=== PATIENT | female | born 1935 | race Caucasian/White ===

== ENCOUNTER 2017-07-07 08:07 | Inpatient (IN) | payer MEDICARE, OTHER ==
[2017-07-06 15:53] LABS: BASOPHILS # (AUTO) 0.1 (0.0-0.1); BASOPHILS % 0.8 % (0.0-1.0); EOSINOPHILS # (AUTO) 0.4 (0.0-0.4); EOSINOPHILS % 5.4 % (0.0-6.0); HEMATOCRIT 38.3 % (34.2-44.1); LYMPHOCYTES # (AUTO) 1.7 (1.0-3.2); LYMPHOCYTES % 23.9 % (18.0-39.1); MEAN CORPUSCULAR HEMOGLOBIN 30.5 pg (28-32); MEAN CORPUSCULAR HGB CONC 33.9 g/dL (31-35); MEAN CORPUSCULAR VOLUME 89.9 fL (81-99); MONOCYTES % 14.2 % (4.4-11.3); NEUTROPHILS % 55.4 % (38.7-80.0); PLATELET COUNT 221 x10e3/uL (140-360); RED BLOOD COUNT 4.26 x10e6/uL (3.6-5.1); RED CELL DISTRIBUTION WIDTH 13.3 % (11.7-14.4)
[2017-07-06 16:05] LABS: ANION GAP 12.9 mmol/L (8-16); CALCIUM 10.9 mg/dL (8.4-10.2); CREATININE, SERUM 2.78 mg/dL (0.57-1.11); POTASSIUM 3.9 mmol/L (3.5-5.1)
--- NOTE | 2017-07-06 16:24 | Diagnostic Imaging Report ---
PROCEDURE: X-RAY CHEST, TWO VIEWS COMPARISON: None. INDICATIONS: PRE-OP FINDINGS: LUNGS: Calcified granuloma in the lateral right upper lobe measures 7 mm. No soft tissue mass or infiltrate in either lung. Pulmonary veins are prominent. No interstitial edema. PLEURA: No effusions or pneumothorax. HEART \T\ MEDIASTINUM: The heart is enlarged. Aorta is ectatic with calcifications of the arch. AICD lead terminates in the right ventricle. BONES \T\ SOFT TISSUES: No focal osseous lesions. Anchors are present in the right humeral head. Clips in the upper abdomen suggestive of cholecystectomy. CONCLUSION: Mild cardiomegaly and pulmonary venous hypertension. No acute pulmonary process. Dictated by: Alejandra Ness M.D. on 07/06/2017 at 16:24 Electronically approved by: Alejandra Ness M.D. on 07/06/2017 at 16:24
[~2017-07-07] VITALS: Ht 157.5 cm; Wt 130.6 kg
[~2017-07-07 08:07] MED LIST: AMIODARONE HCL200 MG PO; COLESTIPOL HCL1 GM PO; ELIQUIS PO; FUROSEMIDE40 MG PO; HYDRALAZINE HC100 MG PO; LOSARTAN-HCTZ1 EAC2 PO; METOPROLOL TART50 MG PO; POTASSIUM CHLO20 ME1 PO; ROPIVACAINE 246.25 MG, EPINEPHRINE HCL 1:1000 0.5 MG, CLONIDINE HCL 0.08 MG, KETOROLAC ... INJ ONE
--- OUTSIDE RECORDS SUMMARY | 2017-07-07 08:10 | XMS REPORT ---
Author Author [facility] Address Unknown Phone Unavailable Care Team Providers Care Weight Recorder Name Role Phone SCOTTY JOINER Unavailable Unavailable Problems This patient has no known problems. Allergies, Adverse Reactions, Alerts This patient has no known allergies or adverse reactions. Medications This patient has no known medications. Results Test Description Test Time Test Comments Text Results Atomic Results Result Comments CHEST 2 VIEWS [facility] [address] [id number] Patient Name: SG HAINES MR #: [id number] : 1935 Age/Sex: 81/F Req #: [id number] Adm Physician: Ordered by: SCOTTY JOINER MD Report #: [id number] Location: OR Room/Bed: Procedure: [id number] DX/CHEST 2 VIEWS Exam Date: 07/06/17 Exam Time: 1600 REPORT STATUS: Signed PROCEDURE: X-RAY CHEST, TWO VIEWS COMPARISON: None. INDICATIONS: PRE-OP FINDINGS: LUNGS: Calcified granuloma in the lateral right upper lobe measures 7 mm. No soft tissue mass or infiltrate in either lung. Pulmonary veins are prominent. No interstitial edema. PLEURA: No effusions or pneumothorax. HEART T MEDIASTINUM: The heart is enlarged. Aorta is ectatic with calcifications of the arch. AICD lead terminates in the right ventricle. BONES T SOFT TISSUES: No focal osseous lesions. Anchors are present in the right humeral head. Clips in the upper abdomen suggestive of cholecystectomy. CONCLUSION: Mild cardiomegaly and pulmonary venous hypertension. No acute pulmonary process. Dictated by: Ignacio Ness M.D. on 07/06/2017 at 16:24 Electronically approved by: Ignacio Ness M.D. on 07/06/2017 at 16:24 Dictated By: IGNACIO NESS MD [id number] Transcribed By : VERO on 07/06/17 [id number] COPY TO: SCOTTY JOINER MD
[2017-07-07] MEDS ORDERED: CELECOXIB 200 MG CAP ONE (08:14)
[2017-07-07] MEDS ORDERED: GABAPENTIN 300 MG CAP ONE (08:14)
[2017-07-07] MEDS ORDERED: DEXAMETHASONE SOD PHOS 10 MG/1 ML VIAL ONE (08:14)
[2017-07-07] MEDS ORDERED: CEFAZOLIN SOD 2 GM/D5W 50ML 50 ML IV ONE (08:15)
[2017-07-07] MEDS ORDERED: MUPIROCIN 2% OINT 22 GM TUBE ONE (09:23)
[2017-07-07] MEDS ORDERED: BACITRACIN 50,000 UNIT VIAL ONE (09:24)
[2017-07-07] MEDS ORDERED: TRANEXAMIC ACID 1,000 MG/10 ML ML ONE (09:29)
[2017-07-07] MEDS: SODIUM CHLORIDE 0.9% 1000ML 1,000 ML IV SCH ×2 (11:20→22:51)
[2017-07-07] MEDS ORDERED: PROMETHAZINE HCL (IM) 25 MG/ML VIAL IM PRN (11:30)
[2017-07-07] MEDS ORDERED: ONDANSETRON HCL INJ 2 MG/ML VIAL IV PRN (11:30)
[2017-07-07] MEDS ORDERED: DIPHENHYDRAMINE HCL INJ 50 MG/ML VIAL IM/IV PRN (11:30)
[2017-07-07] MEDS ORDERED: KETOROLAC TROMETHAMINE 30 MG/ML VIAL IV PRN (11:30)
[2017-07-07] MEDS ORDERED: HYDROCODONE/APAP 5MG-325MG TAB PO PRN (11:30)
[2017-07-07] MEDS ORDERED: ACETAMINOPHEN 650 MG SUPP PR PRN (11:30)
--- NOTE | 2017-07-07 12:39 | Diagnostic Imaging Report ---
PROCEDURE: X-RAY LEFT KNEE, ONE OR TWO VIEWS COMPARISON: None. INDICATIONS:POST LEFT KNEE SURGERY FINDINGS: See conclusion. CONCLUSION: Status post total left knee replacement with surrounding soft tissue swelling, air and tremaine consistent with recent surgery. No acute fractures. Dictated by: Lakhwinder Carpenter M.D. on 07/07/2017 at 12:39 Electronically approved by: Lakhwinder Carpenter M.D. on 07/07/2017 at 12:39
[2017-07-07] MEDS ORDERED: CEFAZOLIN SOD 1 GM/D5W 50ML 50 ML IV SCH (14:00)
--- NOTE | 2017-07-07 14:30 | Operative Report ---
DATE OF PROCEDURE: July 07, 2017 [employer]OTIVE [employer]NET SALES CONSULTANT: Angelo Deal PA-C The patient was brought to the operating room for induction of anesthesia. Throughout this case, my PA's assistance was necessary for retraction of soft tissue and positioning of the extremity. This allows for efficient and technically successful execution of the operation and is considered medically necessary. PREOPERATIVE DIAGNOSIS: Osteoarthritis, left knee. POSTOPERATIVE DIAGNOSIS: Osteoarthritis, left knee. PROCEDURE: Left total knee arthroplasty. INDICATIONS: The patient is an 81-year-old lady who has severe arthritis in her left knee. She has failed conservative management and feels the symptoms are severely compromising her quality of life. She would like to proceed with a left total knee arthroplasty. She went through a right knee replacement approximately 10 years ago and is pleased with her improved mobility and relief of pain. The risks and benefits and added challenges due to her BMI of 37 and her age have been explained. She states she understands and wishes to proceed. DESCRIPTION OF PROCEDURE: The patient was brought to the operating room and placed under general anesthetic. She received a regional block, prophylactic antibiotics and tranexamic acid in the holding area. Her left lower extremity was prepped and draped in a sterile manner. A preoperative time out was performed. The extremity was exsanguinated, and a proximal tourniquet was inflated to 350 mmHg due to her body habitus. An anterior approach to the left knee was made. A medial parapatellar arthrotomy was performed. Clear synovial fluid was removed from the joint. Soft-tissue releases were performed to bring the knee up into flexion with the patella everted. The remnants of the cruciate ligaments were sacrificed. Meniscal remnants and marginal osteophytes were removed. Complete loss of articular cartilage was noted in all 3 compartments. A Hcan and Nephew Shazia II posterior stabilized knee system was used throughout the case. An extramedullary cutting guide was used to resect the proximal tibia. The tibial baseplate was a size #4. The central fin punch was impacted, and attention was directed towards the distal femur. An intramedullary cutting guide was used to resect the distal femur in 6 degrees of valgus and rotation referenced off of a combination of landmarks including [place] line, the epicondylar axis and the posterior condyles. The femoral component was a size 5. The anterior and posterior cuts were made. Trial reductions were then performed. An 11-mm ultracongruent tibial insert provided optimal soft-tissue balancing in full extension and 90 degrees of flexion. The patella was then resurfaced with a 32 mm x 9 mm patellar button. The thickness was checked before and after resurfacing and was right around 21 mm. Patellar tracking was noted to be concentric. The trial implants were then all removed. A 100 mL premixed pericapsular CELIO injection was placed into the soft tissue around the knee. The knee was thoroughly irrigated with a shower-tip pulsatile lavage. The components were cemented into place using a single mix of Palacos cement preloaded with antibiotics. Care was taken to remove all extravasated cement. The wound was further irrigated while the cement cured. The arthrotomy was then carefully closed with interrupted #1 Ethibond. The knee was put through flexion and extension after each stitch to ensure a secure closure was accomplished. The skin was closed with subcuticular Vicryl and tremaine. Her skin was thin and somewhat frail. A Prevena wound vacuum was applied again due to her body habitus. The leg was then wrapped with an Eric wrap, and she was extubated. She was transported to the recovery room in stable condition. Blood loss was minimal. All needle and sponge counts were correct. Job#: [id number]
[2017-07-07 15:48] VITALS: BP 132/65
[2017-07-07 15:55] VITALS: BP 132/65
[2017-07-07 16:13] VITALS: BP 132/65
[2017-07-07] MEDS ORDERED: ASPIRIN 325 MG TAB PO SCH (17:00)
[2017-07-07] MEDS ORDERED: CELECOXIB 100 MG CAP PO SCH (17:00)
[2017-07-07] MEDS ORDERED: LIDOCAINE HCL 2% LOCAL INJ 5 ML SDV VIAL INJ ONE (17:22)
[2017-07-07] MEDS ORDERED: DEXAMETHASONE SOD PHOS INJ 4 MG/ML VIAL ONE (17:22)
[2017-07-07] MEDS ORDERED: ONDANSETRON HCL INJ 2 MG/ML VIAL ONE (17:22)
[2017-07-07] MEDS ORDERED: PROPOFOL IV EMULSION 10 MG/ML 20 ML VIAL ONE (17:22)
[2017-07-07] MEDS ORDERED: SEVOFLURANE INHAL SOLN 250 ML PEN BTL ONE (17:22)
[2017-07-07] MEDS ORDERED: BUPIVACAINE HCL 0.5% INJ 30 ML VIAL INJ ONE (17:29)
[2017-07-07] MEDS ORDERED: MIDAZOLAM HCL 2 MG/2 ML VIAL ONE (17:30)
[2017-07-07] MEDS ORDERED: FENTANYL CITRATE/PF 100MCG/2 ML INJ ONE ×2 (17:30→17:34)
[2017-07-07 17:33] LABS: ALBUMIN 3.4 g/dL (3.5-5.0); ALBUMIN/GLOBULIN RATIO 1.1 (0.8-2.0); ANION GAP 13.3 mmol/L (8-16); CREATININE, SERUM 2.68 mg/dL (0.57-1.11); POTASSIUM 4.3 mmol/L (3.5-5.1)
--- NOTE | 2017-07-07 17:38 | Consultation ---
DATE OF CONSULTATION: July 07, 2017 INTERNAL MEDICINE CONSULTATION The patient is status post right knee arthroplasty, consulted for medical management. HISTORY OF PRESENTING ILLNESS: This is an 81-year-old female with a history of left knee pain for the last year or so, underwent TKA today, and after that she is being consulted. PAST MEDICAL HISTORY: History of arrhythmia, and she is on Eliquis for it. She also has a history of hypertension. OPERATIONS IN THE PAST: Cholecystectomy, hysterectomy, pacemaker, rotator cuff repair, and also a right-sided TKA. SOCIAL HISTORY: No ETOH. No IV drug abuse. Lives by herself. Primary caretakers are her daughters. No smoking either. FAMILY HISTORY: History of diabetes and history of hypertension. MEDICATIONS SHE TAKES AT HOME: Tramadol as needed. She also takes losartan/hydrochlorothiazide. She also takes Eliquis on a daily basis. ALLERGIES: NKDA. REVIEW OF SYSTEMS: Negative for chest pain. No shortness of breath. No nausea, vomiting, diarrhea. No constipation. No rectal bleeding. No hematochezia. Positive for left knee pain status post surgery. PHYSICAL EXAMINATION GENERAL: Patient is alert and oriented x3. Sleeps in and out. Arousable, though. HEENT: Normocephalic, atraumatic. Pupils react to light and accommodation. CARDIOVASCULAR: S1 and S2 normal. Regular rate and rhythm. ABDOMEN: Nontender, nondistended. EXTREMITIES: Left knee in bandage. There is a drain in there, too. ASSESSMENT 1. Status post left knee replacement. The patient has history of hypertension, will restart her home medications. 2. Patient has history of chronic renal failure. The patient's BUN was 61 and creatinine 2.78. Will go ahead and increase her fluids to 100 mL an hour to increase fluid to get her creatinine back. Check medications and start her back on Eliquis if it is okay with Ortho and check her BUN and creatinine tomorrow. Further recommendations on clinical course. Will continue to monitor the patient, and I will also monitor the patient for postsurgical anemia, too. DVT prophylaxis. The patient should be on Eliquis. We will consult Ortho. If it is okay with them, I will restart the Eliquis. Job#: [id number] EV
[2017-07-07] MEDS: ACETAMINOPHEN 1000 MG/100 ML IV SCH (17:58)
[2017-07-07] MEDS: HYDRALAZINE HCL 100 MG TABLET PO SCH (17:58)
[2017-07-07] MEDS: CEFAZOLIN SOD 1 GM VIAL IV SCH (17:59)
[2017-07-07] MEDS: FUROSEMIDE 40 MG TAB PO SCH (17:59)
[2017-07-07] MEDS: METOPROLOL TARTRATE 50 MG TAB PO SCH (17:59)
[2017-07-07] MEDS: CELECOXIB 200 MG CAP PO SCH (17:59)
[2017-07-07] MEDS ORDERED: APIXABAN 5 MG TABLET PO ONE (19:45)
[2017-07-07 20:00] VITALS: BP 115/56
[2017-07-07] MEDS ORDERED: ZOLPIDEM TARTRATE 5 MG TAB PO PRN (21:00)
[2017-07-08] VITALS (8 sets, daily range): BP systolic 107–123; BP diastolic 20–68
[2017-07-08] MEDS: ACETAMINOPHEN 1000 MG/100 ML IV SCH ×2 (00:58→06:00)
[2017-07-08] MEDS: CEFAZOLIN SOD 1 GM VIAL IV SCH ×2 (03:42→09:50)
[2017-07-08 07:11] LABS: HEMATOCRIT 35.8 % (34.2-44.1)
[2017-07-08 07:46] LABS: ALBUMIN 3.3 g/dL (3.5-5.0); ALBUMIN/GLOBULIN RATIO 1.1 (0.8-2.0); ANION GAP 14.6 mmol/L (8-16); CALCIUM 9.3 mg/dL (8.4-10.2); POTASSIUM 4.6 mmol/L (3.5-5.1)
[2017-07-08] MEDS ORDERED: NON-FORMULARY MEDICATION ([Eliquis] 5 MG) PO SCH (09:00)
[2017-07-08] MEDS: SODIUM CHLORIDE 0.9% 1000ML 1,000 ML IV SCH ×2 (09:50→20:35)
[2017-07-08] MEDS: METOPROLOL TARTRATE 50 MG TAB PO SCH ×2 (09:50→17:40)
[2017-07-08] MEDS: HYDRALAZINE HCL 100 MG TABLET PO SCH ×2 (09:50→17:40)
[2017-07-08] MEDS: APIXABAN 5 MG TABLET PO SCH ×2 (09:50→17:40)
[2017-07-08] MEDS: CELECOXIB 200 MG CAP PO SCH ×2 (09:50→17:40)
[2017-07-08] MEDS: POTASSIUM CHLORIDE 20 MEQ TAB CR PO SCH (09:50)
[2017-07-08] MEDS: FUROSEMIDE 40 MG TAB PO SCH ×2 (09:50→17:40)
[2017-07-08] MEDS: LOSARTAN POTASSIUM 100 MG TAB PO SCH (09:50)
[2017-07-08] MEDS: HYDROCHLOROTHIAZIDE 25 MG TAB PO SCH (09:50)
[2017-07-08] MEDS: AMIODARONE HCL 200 MG TAB PO SCH (09:50)
[2017-07-08] MEDS ORDERED: ACETAMINOPHEN 1000 MG/100 ML IV PRN (11:30)
[2017-07-08] MEDS: DOCUSATE SODIUM 100 MG CAP PO PRN (20:35)
[2017-07-09] VITALS (8 sets, daily range): BP systolic 91–132; BP diastolic 50–70
[2017-07-09] MEDS: SODIUM CHLORIDE 0.9% 1000ML 1,000 ML IV SCH ×3 (03:20→21:43)
[2017-07-09 06:57] LABS: HEMOGLOBIN 10.8 g/dL (12.0-16.0)
[2017-07-09 07:25] LABS: ALBUMIN/GLOBULIN RATIO 1.1 (0.8-2.0); ANION GAP 13.4 mmol/L (8-16); CALCIUM 8.5 mg/dL (8.4-10.2); CREATININE, SERUM 3.07 mg/dL (0.57-1.11); POTASSIUM 4.4 mmol/L (3.5-5.1)
[2017-07-09] MEDS: AMIODARONE HCL 200 MG TAB PO SCH (09:15)
[2017-07-09] MEDS: LOSARTAN POTASSIUM 100 MG TAB PO SCH (09:15)
[2017-07-09] MEDS: METOPROLOL TARTRATE 50 MG TAB PO SCH ×2 (09:15→16:36)
[2017-07-09] MEDS: HYDRALAZINE HCL 100 MG TABLET PO SCH ×2 (09:15→16:36)
[2017-07-09] MEDS: APIXABAN 5 MG TABLET PO SCH ×2 (09:15→16:36)
[2017-07-09] MEDS: HYDROCHLOROTHIAZIDE 25 MG TAB PO SCH (09:15)
[2017-07-09] MEDS: FUROSEMIDE 40 MG TAB PO SCH (09:15)
[2017-07-09] MEDS: POTASSIUM CHLORIDE 20 MEQ TAB CR PO SCH (09:15)
--- NOTE | 2017-07-09 12:14 | Diagnostic Imaging Report ---
PROCEDURE:US RETROPERITONEAL ( KIDNEY ). COMPARISON:None. INDICATIONS:Elevated BUN/Creat TECHNIQUE: Hankins-scale and color sonographic images of the bilateral kidneys and bladder where obtained in transverse and longitudinal planes. FINDINGS: RIGHT KIDNEY: 10.7 cm, cortex 1.2 cm Cysts: 5.9 x 5.0 x 6.5 cm exophytic cystic, anechoic lesion in the inferolateral aspect. 7.1 x 4.2 x 6.7 cm exophytic cystic, anechoic lesion in the superolateral aspect Solid masses: None Stones: None Hydronephrosis: None Echogenicity: Increased LEFT KIDNEY: 10.8 cm, cortex 2.1 cm Cysts: None Solid masses: None Stones: None Hydronephrosis: None Echogenicity: Increased Bladder: No focal lesions. No wall thickening. CONCLUSION: 1. Normal bilateral renal size. Increased renal cortical echogenicity, consistent with medical renal disease. 2. Right simple renal cysts measuring 6.5 cm and 7.1 cm in greatest diameter Domenic Vasquez M.D. Dictated by: Domenic Vasquez M.D. on 07/09/2017 at 12:15 Electronically approved by: Domenic Vasquez M.D. on 07/09/2017 at 12:15
[2017-07-09] MEDS ORDERED: SODIUM CHLORIDE 0.9% 1000ML 1,000 ML IV STA (15:15)
--- NOTE | 2017-07-09 16:20 | Consultation ---
DATE OF CONSULTATION: July 09, 2017 HISTORY OF PRESENT ILLNESS: Ms. Mayelin Coles is a pleasant 81-year-old female with history of osteoarthritis of the knees, status post left total knee replacement 2 days ago. Renal consult for management of acute kidney injury. BUN and creatinine 77 and 3.0 with a potassium 4.4. Patient claims she has had prior renal insufficiency. 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 She has underlying history of hypertension. Also has a history of prior cholecystectomy and hysterectomy. She has a history of cardiac arrhythmia, status post pacemaker placement. Has a white count 7.2, hemoglobin 10.8. She is currently sitting up in no apparent distress. ALLERGIES: NO APPARENT DRUG ALLERGIES. SOCIAL HISTORY: Does not smoke or drink. FAMILY HISTORY: Significant for hypertension. PAST MEDICAL HISTORY: The patient denies any history of diabetes, CVA, kidney stone disease or renal insufficiency in her family, and neither does she have history of diabetes or CVA. She denies any history of malignancy as well. REVIEW OF SYSTEMS: Negative for nausea, vomiting, shortness of breath, difficulty breathing or difficulty urinating. She also denies any abdominal pain. CURRENT MEDICATIONS: Include Lasix 40 mg. Currently on hydrochlorothiazide, Lasix 40 b.i.d. Losartan 100 mg daily. Metoprolol 25 p.o. b.i.d. Amiodarone 200 mg daily. Potassium chloride 20 mEq daily. Tylenol p.r.n. Apixaban 5 mg p.o. daily. Ketoralac 30 mg q.6. Tylenol p.r.n. Diphenhydramine p.r.n. and currently receiving normal saline at 100 mL an hour. PHYSICAL EXAMINATION: GENERAL: Awake, alert, laying supine, sitting up and in no apparent distress. VITALS: Blood pressure of 120/70, pulse rate 67. Afebrile. Oxygen saturation 96% on room air. HEAD AND NECK: Cornea clear. Mucosa dry. Neck veins not distended. LUNGS: Clear. No rales. HEART: S1 and S2 audible. ABDOMEN: Otherwise soft and nontender. LOWER EXTREMITY EXAMINATION: SEAN hoses. No edema. Dressing noted over the left knee where she had a recent total knee replacement done. IMPRESSION AND PLAN: Acute kidney injury, possibly superimposed on chronic kidney disease. Kidney ultrasound noted. Relatively normal size kidneys with simple renal cysts. Patient on multiple diuretics. Currently appears dehydrated. No evidence of fluid overload. Plan to discontinue losartan. Discontinue potassium chloride. Discontinue Lasix. Discontinue hydrochlorothiazide. Will hydrate and replace volume with normal saline. Renal workup ordered. Please see orders. Job#: [id number] GH
[2017-07-09] MEDS: HYDROCODONE/APAP 7.5MG-325MG 1 EA TAB PO PRN (16:38)
[2017-07-10] VITALS: BP 130/64
[2017-07-10] MEDS: SODIUM CHLORIDE 0.9% 1000ML 1,000 ML IV SCH (02:18)
[2017-07-10 04:00] VITALS: BP 136/72
[2017-07-10 07:30] LABS: ALBUMIN 2.9 g/dL (3.5-5.0); ANION GAP 11.9 mmol/L (8-16); CALCIUM 8.2 mg/dL (8.4-10.2); CREATININE, SERUM 2.56 mg/dL (0.57-1.11); POTASSIUM 3.9 mmol/L (3.5-5.1)
[2017-07-10 08:04] VITALS: BP 130/62
[2017-07-10] MEDS: AMIODARONE HCL 200 MG TAB PO SCH (08:46)
[2017-07-10] MEDS: HYDRALAZINE HCL 100 MG TABLET PO SCH (08:46)
[2017-07-10] MEDS: APIXABAN 5 MG TABLET PO SCH (08:46)
[2017-07-10] MEDS: METOPROLOL TARTRATE 50 MG TAB PO SCH (08:47)
[2017-07-10] MEDS: DOCUSATE SODIUM 100 MG CAP PO PRN (10:10)
[2017-07-10] MEDS: HYDROCODONE/APAP 7.5MG-325MG 1 EA TAB PO PRN (10:12)
[2017-07-11] MEDS ORDERED: FUROSEMIDE 40 MG TAB PO SCH (09:00)
--- NOTE | 2017-08-12 10:10 | Discharge Summary ---
CHIEF COMPLAINT: Left knee pain. HISTORY OF PRESENT ILLNESS: The patient is a 78-year-old female who complains of left knee pain for over 3 years. She has already been through a right total knee replacement back in 2006. She states the right knee has done well. She states the pain in the left knee has gotten progressively worse despite conservative measures. X-rays of her left knee show end-stage osteoarthritis. The findings were discussed with the family. She has end-stage arthritis in the left knee. She now wishes to proceed with a left total knee replacement. The risks and benefits were explained. The patient states she understands and wishes to proceed. HOSPITAL COURSE: The patient underwent a left total hip total knee replacement without complications. She was then transferred to the recovery room and the floor in stable condition. She was followed by Dr. Cortez for postop medical management. She moved slowly with physical therapy. She did not have much family support. Because of this, we decided on going to a jail facility. We cautioned her on the risks. Ultimately, she was discharged to a jail facility on postop day 3. She remained stable throughout her hospital stay. PRINCIPAL DIAGNOSIS: Osteoarthritis, left knee. PRINCIPAL PROCEDURE: Left total knee replacement. DISCHARGE INSTRUCTIONS: The patient was discharged and sent to jail. It was instructed that she resume her home medications as directed. She was put back on her Eliquis for thromboprophylaxis. She was to be weightbearing as tolerated with a rolling walker. She was to come back to our office in roughly a week to check on the wound. DICTATED BY DUSTY DANG PA-C SCOTTY JOINER MD Job#: [id number] SUSAN
== END 2017-07-10 13:40 | disposition home health service (06) | DRG 470 ==
LOC: OR 08:07 → MED/SURG 15:05 → OBSVTOIN 07-09 10:25
PROVIDERS: ADMIT Specialist; ATTEND Specialist
PROC: 0SRD0J9 Replacement of Left Knee Joint with Synthetic Substitute, Cemented, Open Approach (ICD-10-PCS; principal; 2017-07-07 10:00)
DX: M17.0 Bilateral primary osteoarthritis of knee (principal); N17.9 Acute kidney failure, unspecified; N18.4 Chronic kidney disease, stage 4 (severe); N28.1 Cyst of kidney, acquired; Z68.43 Body mass index [BMI] 50.0-59.9, adult; I48.91 Unspecified atrial fibrillation; E86.0 Dehydration; D64.9 Anemia, unspecified; I12.9 Hypertensive chronic kidney disease with stage 1 through stage 4 chronic kidney disease, or unspecified chronic kidney disease; Z95.0 Presence of cardiac pacemaker; I49.9 Cardiac arrhythmia, unspecified; Z79.01 Long term (current) use of anticoagulants; E66.9 Obesity, unspecified
CPT/HCPCS: 36415; 71046; 76770; 80048; 80053; 85014; 85018; 85025; 86850; 86900; 86920; 93005; 97139; C1713; G0378; J0171; J0690; J1100; J1885; J2001; J2250; J2405; J2795; J7030

== ENCOUNTER → 2017-09-11 | Outpatient (CLI) | payer MEDICARE, OTHER ==
[~2017-09-11] MED LIST changes: -ROPIVACAINE 246.25 MG, EPINEPHRINE HCL 1:1000 0.5 MG, CLONIDINE HCL 0.08 MG, KETOROLAC ... INJ ONE
== END ==
LOC: RAD 15:15
PROVIDERS: ATTEND Family Medicine
DX: R60.0 Localized edema (principal)
CPT/HCPCS: 93970

== ENCOUNTER 2019-06-30 22:19 | Emergency (ER) | payer OTHER, MEDICARE ==
[~2019-06-30] VITALS: Ht 157.5 cm; Wt 130.6 kg
[2019-06-30 22:51] LABS: BASOPHILS % 0.1 % (0.0-1.0); EOSINOPHILS # (AUTO) 0.1 (0.0-0.4); EOSINOPHILS % 0.8 % (0.0-6.0); HEMOGLOBIN 13.5 g/dL (12.0-16.0); LYMPHOCYTES # (AUTO) 0.8 (1.0-3.2); LYMPHOCYTES % 5.6 % (18.0-39.1); MEAN CORPUSCULAR HEMOGLOBIN 30.2 pg (28-32); MEAN CORPUSCULAR HGB CONC 32.1 g/dL (31-35); MONOCYTES # (AUTO) 1.1 (0.2-0.8); MONOCYTES % 7.5 % (4.4-11.3); NEUTROPHILS # (AUTO) 12.4 (2.1-6.9); NEUTROPHILS % 85.2 % (38.7-80.0); PLATELET COUNT 283 x10e3/uL (140-360); RED BLOOD COUNT 4.47 x10e6/uL (3.6-5.1); RED CELL DISTRIBUTION WIDTH 14.1 % (11.7-14.4)
[2019-06-30 23:05] LABS: ALBUMIN 2.8 g/dL (3.5-5.0); ALBUMIN/GLOBULIN RATIO 0.8 (0.8-2.0); ANION GAP 13.3 mmol/L (8-16); CREATININE, SERUM 2.15 mg/dL (0.57-1.11); POTASSIUM 4.3 mmol/L (3.5-5.1)
[2019-06-30 23:07] LABS: CALCIUM 10.4 mg/dL (8.4-10.2)
[2019-06-30 23:12] LABS: CREATINE KINASE MB 1.8 ng/mL (0-5.0)
--- NOTE | 2019-06-30 23:54 | Diagnostic Imaging Report ---
CT BRAIN WO HISTORY: Fall COMPARISON: None. Technique: Noncontrast axial scans were obtained from skull base to the vertex. Coronal and sagittal reconstructions obtained from the axial data. One or more of the following dose reduction techniques were used: Automated exposure control, adjustment of the mA and/or kV according to patient size, and/or utilization of iterative reconstruction technique. DISCUSSION: Scalp/Skull: Unremarkable. Brain sulci: Mildly prominent. Ventricles: Compensatory dilatation. Extra-axial spaces: No masses or fluid collections. Carotid and vertebral artery calcifications are present. Parenchyma: Mild bilateral deep white matter hypodensity is likely chronic microvascular ischemic change. Otherwise, no masses, hemorrhage, or large vascular territory acute infarct. Dural sinuses: No abnormal densities. Sellar/Suprasellar region: Intact. Skull base: Intact. Incidental findings: Bilateral ocular lens replacement. IMPRESSION: 1. No acute intracranial abnormalities. 2. Mild supratentorial chronic microvascular ischemic change. Mild generalized cerebral volume loss. Signed by: Dr. Jean Scott M.D. on 06/30/2019 11:51 PM
--- NOTE | 2019-07-01 00:01 | Diagnostic Imaging Report ---
CT CERVICAL SPINE WO HISTORY: Trauma COMPARISON: None. TECHNIQUE: CT of the cervical spine without contrast. Sagittal and coronal reformations were created. One or more of the following dose reduction techniques were used: Automated exposure control, adjustment of the mA and/or kV according to patient size, and/or utilization of iterative reconstruction technique. FINDINGS: Bone demineralization limits evaluation. Cervical lordosis is straightened. There is no significant scoliosis. No definite acute fracture or compression deformity is seen. Advanced atlantoaxial arthrosis is present. The craniocervical junction is otherwise intact. No gross spinal canal masses are seen. The paravertebral and paraspinal soft tissues are unremarkable. Moderate multilevel spondylotic changes are most prominent at C5-C6 and C6-C7. Prominent multilevel bilateral facet arthrosis is present. There is associated grade 1 anterolisthesis of C4 on C5. Minimal grade 1 anterolisthesis of C5 on C6, C6 on C7, and C7 on T1 are also present. There is at least mild canal stenosis at C2-C3 and C3-C4 due to posterior disc osteophyte complexes and ligamentum flavum thickening. There is scarring at the right lung apex. Hypodense right thyroid nodule measures up to 1.6 cm. Moderate right and mild left carotid bulb calcified plaque is present. Trace right mastoid effusion is present. IMPRESSION: 1. No acute osseous abnormalities. 2. Moderate multilevel spondylosis, most prominent at C5-C6 and C6-C7, with advanced multilevel bilateral facet arthrosis. 3. Incidental 1.6 cm hypodense right thyroid nodule. Further evaluation with nonemergent thyroid ultrasound is recommended. Signed by: Dr. Jean Scott M.D. on 06/30/2019 11:58 PM
--- NOTE | 2019-07-01 00:05 | Diagnostic Imaging Report ---
CT MAXIO FAC/PARANAS WO HISTORY: Trauma COMPARISON: Concurrent head and cervical spine CT TECHNIQUE: Axial CT images through the face were obtained without contrast. Coronal/sagittal reformations were created. One or more of the following dose reduction techniques were used: Automated exposure control, adjustment of the mA and/or kV according to patient size, and/or utilization of iterative reconstruction technique. DISCUSSION: No acute fracture is seen. Small bilateral maxillary and mandibular davi are present. Mild bilateral temporomandibular joint degenerative changes are also seen. The orbits are intact. Intraorbital contents are grossly unremarkable. The paranasal sinuses are clear. A few punctate subcutaneous hyperdense foci (calcifications?) in the left neck are nonspecific. IMPRESSION: No acute osseous abnormalities in the face. Signed by: Dr. Jean Scott M.D. on 07/01/2019 12:02 AM
--- NOTE | 2019-07-01 00:12 | Diagnostic Imaging Report ---
EXAMINATION: CHEST SINGLE (PORTABLE) INDICATION: Fall. COMPARISON: None FINDINGS: TUBES and LINES: Left-sided pacemaker with single lead overlying the right ventricle. LUNGS: Low lung volumes. Central vascular congestion. There is no evidence of pneumonia or pulmonary edema. Calcified granuloma in the right upper lung. PLEURA: No pleural effusion or pneumothorax. HEART AND MEDIASTINUM: The cardiomediastinal silhouette is mildly enlarged. Atherosclerotic calcifications of a tortuous thoracic aorta. BONES AND SOFT TISSUES: No acute osseous lesion. Soft tissues are unremarkable. UPPER ABDOMEN: No free air under the diaphragm. IMPRESSION: No acute traumatic abnormality. Mild cardiomegaly with central vascular congestion. Signed by: Dr. Renu Hernandez MD on 07/01/2019 12:09 AM
--- NOTE | 2019-07-01 00:14 | Diagnostic Imaging Report ---
Exam: AP radiograph of the pelvis-1 view History: Fall. Comparison: None. Findings/Impression: Diffuse osteopenia. No evidence of acute fracture or malalignment. Mild to moderate degenerative changes of bilateral hips. Signed by: Dr. Renu Hernandez MD on 07/01/2019 12:11 AM
--- NOTE | 2019-07-01 01:06 | NUR ---
Called [facility] for transport, ETA 15-20 min
== END 2019-07-01 01:30 ==
LOC: ER 22:19
DX: S01.511A Laceration without foreign body of lip, initial encounter (principal); L89.152 Pressure ulcer of sacral region, stage 2; R51 Headache; W01.0XXA Fall on same level from slipping, tripping and stumbling without subsequent striking against object, initial encounter; Y92.128 Other place in nursing home as the place of occurrence of the external cause; F03.90 Unspecified dementia, unspecified severity, without behavioral disturbance, psychotic disturbance, mood disturbance, and anxiety; Z79.01 Long term (current) use of anticoagulants; Z86.718 Personal history of other venous thrombosis and embolism
CPT/HCPCS: 36415; 70450; 70486; 71045; 72125; 72170; 80053; 82550; 82553; 84484; 85025; 93005; 99284

== ENCOUNTER 2019-07-05 00:33 | Inpatient (IN) | payer MEDICARE, OTHER ==
[~2019-07-05] VITALS: Ht 157.5 cm; Wt 78.0 kg
[2019-07-05] VITALS (14 sets, daily range): BP systolic 128–151; BP diastolic 57–104
[2019-07-05] MEDS ORDERED: CEFEPIME 2 GM/NS 0.9% 100 ML 100 ML IV STA (00:37)
[2019-07-05] MEDS ORDERED: SODIUM CHLORIDE 0.9% 1000ML 1,000 ML IV ONE (00:45)
[2019-07-05] MEDS ORDERED: ACETAMINOPHEN 650 MG SUPP PR ONE (01:00)
[2019-07-05 01:08] LABS: INR 2.71; PARTIAL THROMBOPLASTIN TIME 42.2 seconds (23.8-35.5); PROTHROMBIN TIME 30.8 seconds (11.9-14.5)
[2019-07-05 01:16] LABS: ALBUMIN/GLOBULIN RATIO 0.6 (0.8-2.0); ANION GAP 14.6 mmol/L (8-16); CALCIUM 10.3 mg/dL (8.4-10.2); CREATININE, SERUM 2.75 mg/dL (0.57-1.11); POTASSIUM 4.6 mmol/L (3.5-5.1)
[2019-07-05 01:19] LABS: CREATINE KINASE MB 4.6 ng/mL (0-5.0)
[2019-07-05 01:33] LABS: BASOPHILS # (AUTO) 0.1 (0.0-0.1); BASOPHILS % 0.3 % (0.0-1.0); EOSINOPHILS % 0.2 % (0.0-6.0); HEMATOCRIT 38.3 % (34.2-44.1); HEMOGLOBIN 12.5 g/dL (12.0-16.0); LYMPHOCYTES # (AUTO) 0.3 (1.0-3.2); LYMPHOCYTES % 1.3 % (18.0-39.1); MEAN CORPUSCULAR HEMOGLOBIN 30.3 pg (28-32); MEAN CORPUSCULAR HGB CONC 32.6 g/dL (31-35); MEAN CORPUSCULAR VOLUME 92.7 fL (81-99); MONOCYTES # (AUTO) 0.3 (0.2-0.8); MONOCYTES % 1.3 % (4.4-11.3); NEUTROPHILS # (AUTO) 25.4 (2.1-6.9); NEUTROPHILS % 96.3 % (38.7-80.0); PLATELET COUNT 390 x10e3/uL (140-360); RED BLOOD COUNT 4.13 x10e6/uL (3.6-5.1); RED CELL DISTRIBUTION WIDTH 15.2 % (11.7-14.4)
--- NOTE | 2019-07-05 01:38 | Diagnostic Imaging Report ---
EXAMINATION: CHEST SINGLE (PORTABLE) INDICATION: Fever and cough. COMPARISON: None FINDINGS: TUBES and LINES: Left-sided pacemaker with single lead overlying the right ventricle. LUNGS: Low lung volumes. Central vascular congestion. Mild perihilar, peribronchial thickening perihilar streaky densities. . Mild prominence of the pulmonary interstitium. Calcified granuloma in the right upper lung. PLEURA: No pleural effusion or pneumothorax. HEART AND MEDIASTINUM: The cardiomediastinal silhouette is mildly enlarged. Atherosclerotic calcifications of a tortuous thoracic aorta. BONES AND SOFT TISSUES: No acute osseous lesion. Soft tissues are unremarkable. UPPER ABDOMEN: No free air under the diaphragm. IMPRESSION: Mild bilateral pulmonary venous congestion and interstitial edema. Signed by: Dr. Magy Wang M.D. on 07/05/2019 1:34 AM
[2019-07-05 02:09] LABS: BILIRUBIN,URINE NEGATIVE (NEGATIVE); CLARITY,URINE CLOUDY (CLEAR); COLOR,URINE YELLOW (YELLOW); KETONES,URINE NEGATIVE (NEGATIVE); LEUKOCYTE ESTERASE ,URINE NEGATIVE (NEGATIVE); NITRITE,URINE NEGATIVE (NEGATIVE); PROTEIN,URINE DIPSTICK 1+ (NEGATIVE); URINE UROBILINOGEN 0.2 mg/dL (0.2 - 1)
[2019-07-05 02:10] LABS: BACTERIA,URINE MANY /HPF; EPITHELIAL CELLS,URINE FEW /LPF; TRANSITIONAL EPI CELLS,URINE MODERATE
[2019-07-05] MEDS: SODIUM CHLORIDE 0.9% 1000ML 1,000 ML IV SCH ×5 (03:00→18:19)
--- NOTE | 2019-07-05 04:04 | Diagnostic Imaging Report ---
EXAM: CT Chest WITHOUT contrast 07/05/2019 2:13 AM INDICATION: Pneumonia. COMPARISON: None TECHNIQUE: Chest was scanned utilizing a multidetector helical scanner from the lung apex through the level of the adrenal glands without administration of IV contrast. Absence of intravenous contrast decreases sensitivity for detection of lymphadenopathy and vascular pathology. Coronal and sagittal reformations were obtained. Routine protocol was performed. IV CONTRAST: None RADIATION DOSE: Total DLP: 534.36 mGy*cm Estimated effective dose: (DLP x 0.014 x size factor) mSv COMPLICATIONS: None FINDINGS: LINES/ TUBES: None. LUNGS AND AIRWAYS: Prominence of the central pulmonary vasculature bilaterally. Bilateral perihilar patchy groundglass density suggestive of mild pulmonary edema. Calcified granuloma in the right upper lobe. Airways are normal. PLEURA: Trace bilateral pleural effusion. HEART AND MEDIASTINUM: 1.5 cm low-attenuation nodule in the left adrenal gland. No mediastinal, hilar or axillary lymphadenopathy. The heart is moderately enlarged.. There is no pericardial effusion. There are moderate atherosclerotic calcifications in the aorta and coronary arteries. UPPER ABDOMEN: Limited non-contrast views of the upper abdomen show a 6.1 cm cyst exophytic of the upper pole of the right kidney, and a 5.1 cm cyst exophytic of the lower pole of the right kidney. Status post cholecystectomy. Atherosclerotic calcifications.. The adrenal glands are normal. BONES: There are degenerative changes in the thoracic spine. SOFT TISSUES: Unremarkable. IMPRESSION: Mild bilateral pulmonary edema. Signed by: Dr. Magy Wang M.D. on 07/05/2019 4:01 AM
[2019-07-05] MEDS ORDERED: ONDANSETRON HCL INJ 2MG/ML 2ML 2 MG/ML VIAL IV PRN (04:15)
[2019-07-05] MEDS ORDERED: VANCOMYCIN 1GM/NS 250 ML 250 ML IV SCH (04:15)
[2019-07-05] MEDS ORDERED: ACETAMINOPHEN 650 MG SUPP PR PRN (04:30)
[2019-07-05] MEDS: PIPERACILLIN/TAZO 2.25 GM 50 ML IV SCH ×3 (04:30→14:00)
--- NOTE | 2019-07-05 07:00 | NUR ---
BEDSIDE SHIFT REPORT RECEIVED FROM [employer]ING TEACHER NURSE. PT DENIES NEEDS AT THIS TIME.
--- NOTE | 2019-07-05 08:30 | NUR ---
DR. JULES CALLED ABOUT PT'S CONDITION. INSTRUCTIONS TO MONITOR Q2HRS.
[2019-07-05 09:35] LABS: BAND NEUTROPHILS % (MANUAL) 1 %; MONOCYTES % (MANUAL) 1 % (3.4-9.0); MYELOCYTES % (MANUAL) 1 % (0-0); NEUTROPHILS % (MANUAL) 97 % (40-74)
[2019-07-05 09:39] LABS: PLATELET ESTIMATE ADEQUATE; PLATELET MORPHOLOGY COMMENT NORMAL; RBC MORPHOLOGY COMMENT NORMAL
--- NOTE | 2019-07-05 14:00 | NUR ---
DR. JULES AND DR. COX CALLED ABOUT PT'S CONDITION WELL LABS AND POA AND DNR. INSTRUCTIONS TO TRANSFER TO ICU WELL ABG AND CT WO CONTRAST.
--- NOTE | 2019-07-05 14:50 | NUR ---
WOUND CARE CONSULT FOR 83 YO FEMALE HX OF CELLULITIS AND SEPSIS DEON 10 ON STRICT PUP STATUS AND INTERVENTIONS AND ALTERNATING PRESSURE MATTRESS LABS: WBC-26.33 HGB_12.5 GLUCOSE-107 SKIN ASSESSMENT COMPLETE PATIENT PRESENTS WITH MULTIPLE BRUISED AREAS TO HIPS AND ARMS LEFT FA SKIN TEAR 4.5CMX 3CM X.1CM LEFT CALF UNGRADEABLE SCAB [id number] DARK BROWN SCAB LEFT OUTER ANKLE STG 2 ULCERATION 1.5 CM X2CM X.1CM RIGHT FA SKIN TEAR 12CM X13CM X.2CM RIGHT UPPER FA SKIN TEAR 4CMX 2CM X.2CM RIGHT DORSAL HAND SKIN TEAR 2CMX 7CM X .2CM RECOMMENDATIONS: NURSING TO CONTINUE TO MAINTAIN STRICT PUP STATUS AND INTERVENTIONS AND ALTERNATING PRESSURE MATTRESS NURSING TO CONTINUE TO ASSIST PATIENT OUT OF BED FOR MEALS AND MUCH TOLERATED NURSING TO CONTINUE TO ASSIST PATIENT NEEDED WITH MEALS AND NUTRITIONAL SUPPLEMENTS TO ENSURE PROPER REQUIREMENTS FOR HEALING NURSING TO CONTINUE TO OFFLOAD FEET AND HEELS NEEDED WITH PILLOW SUSPENSION WHEN IN BED NURSING TO CLEAN RIGHT AND LEFT ARM SKIN TEARS WITH NORMAL SALINE DAILY AND APPLY COLLAGEN DRESSING (FIBRACOL) AND COVER WITH ALLEVYN FOAM DRESSING NURSING TO CLEAN LEFT OUTER ANKLE STAGE 2 ULCER WITH NORMAL SALINE DAILY AND APPLY VENELEX OINTMENT AND ALLEVYN FOAM DRESSING NURSING TO CLEAN LEFT POSTERIOR LOWER LEG SCAB WITH NORMAL SALINE DAILY AND APPLY VENELEX OINTMENT AND ALLEVYN FOAM DRESSING Addendum: 07/05/19 at 1503 by Arnulfo Antoine RN Amended: Links added.
--- NOTE | 2019-07-05 14:50 | NUR ---
REPORT CALLED AND PT TRANSFER TO ICU.
--- NOTE | 2019-07-05 16:16 | Consultation ---
DATE OF CONSULTATION: 07/05/2019 REASON FOR CONSULTATION: Sepsis. HISTORY OF PRESENT ILLNESS: This patient, who is currently moved into the intensive care unit. The patient, who looks very ill. She came in with altered mental status. The patient was recently in the hospital. She is an 83-year-old, who has history of osteoarthritis, status post left total knee replacement recently. She had acute kidney injury. She has history of hypertension. The patient was brought in with altered mental status. LABORATORY DATA: Showed a white count 26.33, hemoglobin 12. Sodium 147, potassium 4.6, and creatinine 2.75. Lactic acid was elevated. Blood culture was pending. She had a chest x-ray and chest CT, showed bilateral pulmonary edema. The patient, who is currently on vancomycin and Zosyn. REVIEW OF SYSTEMS: Could not be obtained. PHYSICAL EXAMINATION: GENERAL: She is currently in the intensive care unit. VITAL SIGNS: Temperature 100.1. HEENT: She is not icteric. NECK: Supple. CHEST: Few rhonchi bilateral. COR: S1 and S2. No S3, S4, or murmur. ABDOMEN: Soft. Positive bowel sounds. No tenderness. EXTREMITIES: No edema. IMPRESSION: Sepsis, on admission. Source is unclear. Agree with blood cultures and urine cultures. Agree with vancomycin and Zosyn. We will adjust for kidney function. We will follow. MD KERI Crockett/MODL /[id number]
--- NOTE | 2019-07-05 16:29 | NUR ---
PT'S DAUGHTER CAT CALLED WITH PT'S TRANSFER INFORMATION.
[2019-07-05 16:31] LABS: ABG PCO2 36 mmHg (41-51); ABG PH 7.36 (7.31-7.41)
[2019-07-05 16:32] LABS: ABG HCO3 20 mmol/L (23-28)
[2019-07-05] MEDS: CEFEPIME 1GM/NS 0.9% 50 ML 50 ML IV SCH (17:00)
[2019-07-05] MEDS ORDERED: FUROSEMIDE INJ 10 MG/ML 2 ML VIAL ONE (17:19)
[2019-07-05] MEDS ORDERED: FUROSEMIDE INJ 10 MG/ML 2 ML VIAL IV SCH (18:15)
--- NOTE | 2019-07-05 18:37 | History and Physical ---
HISTORY OF PRESENT ILLNESS: The patient is an 83-year-old female with a history of atrial fibrillation, history of dementia, history of hyperlipidemia, and history of chronic kidney disease, was in her usual state of health. The patient was in [place] [facility] setting with mental status changes. Multiple falls have been documented. The patient was not stable on her feet and with mental status changes, the patient has been falling quite a bit. Yesterday, the patient got febrile and the patient was sent to the emergency room because of multiple comorbidities and also the febrile illness, was found to be in sepsis. The patient was admitted to the hospital for severe sepsis and also with low oxygen saturation. PAST MEDICAL HISTORY: History of atrial fibrillation, history of DVT, history of pulmonary embolism, history of left ankle fracture recently with no orthopedic intervention except for cast. The patient also has history of cognitive decline. PAST SURGICAL HISTORY: Noncontributory. MEDICATIONS: She is taking right now are amiodarone 200 mg once a day, colestipol 1 g twice a day, furosemide 40 mg daily, hydralazine 100 mg b.i.d., metoprolol 50 mg twice a day, potassium chloride daily, and Eliquis 5 mg twice a day, which has been stopped. SOCIAL HISTORY: No EtOH. No IV drug abuse. Lives in a [place] [facility] setting. FAMILY HISTORY: Noncontributory. REVIEW OF SYSTEMS: Cannot be obtained because the patient is nonverbal at this time. PHYSICAL EXAMINATION: VITAL SIGNS: Temperature is 99.4, pulse of 101, respirations of 27, blood pressure is 130/94, and pulse oximetry of 94%. HEENT: Positive for traumatic wound on the right upper eyelid. The patient also has multiple ecchymoses throughout the integumentary system with cellulitic appearance in the left upper arm. The patient has skin tears, erythema to the left upper extremity and also erythema to the right flank, both areas concerning for cellulitis. When eyes closed, pupils reactive. NEUROLOGICAL: Altered mental status. CVS: S1 and S2. Irregular. Tachycardia. The patient has been noted to have run of ventricular tachycardia. NECK: No JVD. LABORATORY VALUES: The patient's initial white count is 26,000, hemoglobin of 12.5, and hematocrit of 38.3. Chemistry show a sodium of 147, potassium of 4.6, BUN of 86, and creatinine of 1.67. Lactic acid 2.8 to 2.4 to 2.3 trending. ALT and AST 33 and 70 respectively. Troponins were negative. Coags; INR was 2.71. Urine very cloudy with nitrites negative and negative leukocyte esterase. MICROBIOLOGY: Pending. IMAGING STUDIES: 1. Initial chest x-ray showed mild bilateral pulmonary venous congestion and interstitial edema. 2. Chest CT confirmed this. ASSESSMENT: Ms. Mayelin Coles with: 1. Severe sepsis. 2. Respiratory distress. 3. History of atrial fibrillation. 4. History of multiple falls. 5. History of chronic kidney disease. 6. History of dementia. 7. Do not resuscitate status. PLAN: With the patient being DNR, we will discuss with the family. The patient will be given Lasix IV right now. Pulmonary consult has been done. The patient has been given 1 g of vancomycin and cefepime. At this time point of time, the patient has agonal breathing. We will discuss with the family about do not resuscitate and hospice consult can be done or palliative care can be done depending on the patient's family's request. Further recommendation per clinical course. We will continue to monitor the patient for sepsis. The patient will continue to get IV hydration, but also we will give her Lasix 20 mg IV in lieu of her pulmonary congestion. Further recommendation per clinical course and also on the family's wishes. MD JAZLYN ChrisJ/MODL /[id number]
--- NOTE | 2019-07-05 19:33 | NUR ---
1800 DR JULES SPOKE WITH DAUGHTERS AT BEDSIDE, BOTH ARE IN AGREEMENT WITH DNR STATUS SINCE PATIENT HAS ADVANCED DIRECTIVES. WE WILL CONTINUE SUPPORTIVE CARE. MAY DISCUSS PALLIATIVE CONSULT TOMORROW.
--- NOTE | 2019-07-05 22:12 | Consultation ---
DATE OF CONSULTATION: 07/05/2019 Pulmonary Consultation REASON FOR CONSULT: Shortness of breath, respiratory failure. HISTORY OF PRESENT ILLNESS: Ms. Coles is an 83-year-old female. She presented to the emergency room with complaints of shortness of breath. She has a history of hypertension, hyperlipidemia, dementia, and CKD. During the hospital stay, the patient was hypoxic and I transferred her to ICU. She has a history of atrial fibrillation, DVT, and pulmonary embolism. She is arousable, but goes back to sleep. I am unable to take a detailed history from her. Source of history is from the chart. REVIEW OF SYSTEMS: GENERAL: Unable to elicit detailed review of systems on the patient because of the patient's mental status. PAST MEDICAL HISTORY: As above in the HPI. FAMILY AND SOCIAL HISTORY: Noncontributory. She lives at the long-term. PHYSICAL EXAMINATION: VITAL SIGNS: Temperature 98.1, pulse of 96, and blood pressure 146/93. HEENT: Head is atraumatic and normocephalic. NECK: Supple. CHEST: Crackles bilaterally. HEART: S1 and S2 audible. ABDOMEN: Soft. EXTREMITIES: Pedal edema. NEUROLOGICAL: She is lethargic, opens her eyes on command and goes back to sleep. LABORATORY DATA: White count of 26,000, hemoglobin 12.5, and platelets 290. Chemistry reviewed. Lactic acid is 2.8. Creatinine is 2.75. On discharge on the , her creatinine was 2.15. ASSESSMENT/PLAN: Ms. Coles is an 83-year-old female with dementia, respiratory failure. Current problem: 1. Acute hypoxic respiratory failure. 2. CT chest is showing evidence of bibasilar pneumonia. 3. Severe sepsis due to pneumonia. PLAN: Continue the patient on IV antibiotics. Continue IV hydration. The patient's family has a do not resuscitate status and hence, she is do not resuscitate. Continue high flow oxygen. Thank you for this consult. MD ARNOL Matta/BRANDON /[id number]
[2019-07-06] VITALS (11 sets, daily range): BP systolic 82–150; BP diastolic 36–95
[2019-07-06] MEDS: SODIUM CHLORIDE 0.9% 1000ML 1,000 ML IV SCH ×3 (04:48→10:45)
[2019-07-06] MEDS ORDERED: LORAZEPAM INJ 2 MG/ML VIAL IV PRN (07:30)
[2019-07-06] MEDS ORDERED: VANCOMYCIN 1GM/NS 250 ML 250 ML IV SCH (07:45)
[2019-07-06] MEDS: MORPHINE SULFATE 2 MG/ML SYR 1ML IV PRN ×2 (07:45→12:35)
--- NOTE | 2019-07-06 07:48 | NUR ---
Rec'd patient continually crying out, restlessness, unable to calm. Spoke with daughter, Reyna Hull, who states the family wishes to "keep her comfortable." Spoke with Dr Cortez, orders rec'd for Morphine and Ativan as needed.
[2019-07-06 08:12] LABS: ABG PO2 78 mmHg (80-105)
[2019-07-06] MEDS ORDERED: BALSAM PERU/CASTOR OIL 60 GM OINT...G. TP SCH (09:00)
--- NOTE | 2019-07-06 10:27 | NUR ---
ASSESSMENT: Spiritual distress Pt's daughter, Reyna, experiencing anticipatory grief. Pt's daughter states her sister is en route to [facility]. Pt's daughter states her mother identifies as Holiness. Intervention: Provided unhurried pastoral presence. Facilitated illness review. Provided prayer and information on how to reach quarrying manager, if needed. Outcome: Pt's daughter expressed appreciation for support. Will follow as able. RUDOLPH RITCHIE [facility] Department O: [phone]
--- NOTE | 2019-07-06 11:15 | NUR ---
HOSPICE WITH NURSING FACILITY DISCHARGE INFORMATION PATIENT HAS BEEN ACCEPTED TO: NAME: [facility] ADDRESS: [id number] [facility] ACCEPTING PLACEMENT MANAGER: MICHELLE BRIDGES MD:VLAD ROOM:[id number] NURSE CALL REPORT TO: [phone] IMM SIGNED AND OBTAINED (if applicable): IMM THE FOLLOWING DOCUMENTS MUST ACCOMPANY PATIENT FOR TRANSFER: COPIED CHART: PACKET
[2019-07-06] MEDS ORDERED: IPRATROPIUM BROMIDE 0.02% 2.5 ML NEB NEB SCH (13:00)
--- NOTE | 2019-07-06 15:52 | NUR ---
WAS NOTIFIED PT WILL BE PICKED UP AT 1730, LET NURSE GIULIA KNOW. PACKET ON CHART FOR AMBULANCE.
--- NOTE | 2019-07-06 16:14 | NUR ---
Report called to PLACIDO Jensen for Room 211 at [facility]. Patient daughters and receiving nurse are aware the patient has BP 79/32 and agonal breathing pattern.
[2019-07-06] MEDS: CEFEPIME 1GM/NS 0.9% 50 ML 50 ML IV SCH (16:15)
--- NOTE | 2019-07-06 17:30 | NUR ---
Paramedics to transport patient to [facility]. Daughters x2 to bedside.
--- NOTE | 2019-07-17 09:55 | Discharge Summary ---
HOSPITAL COURSE: The patient came in with acute sepsis and also acute encephalopathy. The patient was found to be toxic. The patient had multiple falls. The patient's condition deteriorated. The patient had decrease breath sounds and acute change in mental status. We talked to the family in detail. Blood cultures were obtained. Oxycodone potentials were obtained. CT of the chest showed pulmonary edema. The patient did meet sepsis criteria on arrival. Family decided to go hospice with the patient. Renal insufficiency was noted at 2.38, which is the patient's baseline. Also, atrial fibrillation was noted and the patient also has history of DVT, which anticoagulation was dated now because of her multiple falls one. Once sepsis protocol was initiated, the patient was discharged. Once the placement was found, the patient was discharged to a SNF and to be further taken care by hospice. FINAL DIAGNOSES: Sepsis, metabolic encephalopathy. PLAN: Plan was hospice and discharge with comfort care. For further information, look into the chart. The patient on discharge was very unstable and had Kussmaul breathing and again daughters were explained the findings and they agreed to hospice. MD SLIME Chris/MODL /[id number]
== END 2019-07-06 18:00 | disposition hospice, inpatient (51) | DRG 871 ==
LOC: ER 00:33 → ERHOLD 04:12 → MED/SURG2 06:58 → ICU 14:53
PROVIDERS: ADMIT Family Medicine; ATTEND Family Medicine
DX: A41.9 Sepsis, unspecified organism (principal); J96.01 Acute respiratory failure with hypoxia; J18.9 Pneumonia, unspecified organism; G93.41 Metabolic encephalopathy; L03.311 Cellulitis of abdominal wall; L03.114 Cellulitis of left upper limb; R65.20 Severe sepsis without septic shock; I48.91 Unspecified atrial fibrillation; N18.9 Chronic kidney disease, unspecified; F03.90 Unspecified dementia, unspecified severity, without behavioral disturbance, psychotic disturbance, mood disturbance, and anxiety; F09 Unspecified mental disorder due to known physiological condition; E78.5 Hyperlipidemia, unspecified; Z66 Do not resuscitate; Z79.01 Long term (current) use of anticoagulants; Z86.711 Personal history of pulmonary embolism; Z86.718 Personal history of other venous thrombosis and embolism; Z96.652 Presence of left artificial knee joint; L89.522 Pressure ulcer of left ankle, stage 2; N28.9 Disorder of kidney and ureter, unspecified; Z91.81 History of falling
CPT/HCPCS: 36415; 36600; 51700; 71045; 71250; 80053; 81001; 82550; 82553; 82805; 83605; 84484; 85025; 85610; 85730; 87040; 87070; 87086; 87205; 87400; 93005; 99251; 99285; J0692; J1940; J2060; J2270; J2543; J3370; J7030